=== PATIENT | male | born 1975 | race African-American/Black ===

== ENCOUNTER 2017-11-02 08:36 | Emergency (ER) | payer SELFPAY ==
[~2017-11-02] VITALS: Ht 182.9 cm; Wt 70.0 kg
[2017-11-02 08:38] VITALS: BP 0/0
[2017-11-02] MEDS ORDERED: EPINEPHRINE 0.1MG/ML (1:10,000) 10ML SYR ONE (11:05)
== END 2017-11-02 08:51 | disposition expired ==
LOC: ER 08:51
DX: I46.9 Cardiac arrest, cause unspecified (principal); R68.89 Other general symptoms and signs
CPT/HCPCS: 82962; 92950; 99291; J0171